=== PATIENT | female | born 1985 | race Caucasian/White ===

== ENCOUNTER 2022-04-26 08:29 | Emergency (ER) | payer OTHER, SELFPAY ==
--- NOTE | ~2022-04-26 | US_ITS ---
EXAMINATION: US venous doppler LE RT DATE: 04/26/2022 12:10 INDICATION: Right lower limb pain and swelling. TECHNIQUE: Grayscale ultrasound images without and with compression and Doppler ultrasound images of the right lower extremity veins were obtained. COMPARISON: None. FINDINGS: The visualized portions of right common femoral vein, profunda (deep) femoral vein, femoral vein, pop liteal vein, peroneal veins, posterior tibial veins, and greater saphenous vein outflow are patent. IMPRESSION: 1. No deep venous thrombosis. Reviewed, dictated and finalized at location B.
--- NOTE | ~2022-04-26 | XR_ITS ---
EXAMINATION: XR lumbar spine 2-3V DATE: 04/26/2022 12:22 INDICATION: Paresthesias of the right lower leg TECHNIQUE: Anteroposterior and lateral views of the lumbar spine, and cone-down lateral view of the l umbosacral junction were obtained. COMPARISON: None. FINDINGS: There is no fracture, dislocation, or subluxation. The vertebral body heights are maintaine d. There is mild loss of intervertebral disc space height at L5-S1. There is mild facet joint osteoar thritis of the mid and lower lumbar spine. Cholecystectomy clips are noted. IMPRESSION: 1. Mild lumbar spondylosis without acute findings. Reviewed, dictated and finalized at location A.
--- NOTE | ~2022-04-26 | XR_ITS ---
EXAMINATION: XR foot RT min 3V DATE: 04/26/2022 09:28 INDICATION: Right foot pain at the heel. TECHNIQUE: 4 views of right foot were obtained. COMPARISON: None. FINDINGS: Bone alignment is normal. No acute fracture. Ossification at distal tip of fibula may be an old healed fracture or an enthesophyte. There is mild osteoarthritis of talonavicular joint. There i s an enthesophyte at plantar aspect of calcaneal tuberosity. IMPRESSION: 1. No acute fracture. Reviewed, dictated and finalized at location B. IMPRESSION: 1. No acute fracture.
[2022-04-26 08:41] VITALS: BP 158/86; PULSE 63; RESP 16; TEMP 36.6; O2SAT 100
[2022-04-26] MEDS: ACETAMINOPHEN 500 MG TABLET 1000 MG PO (12:29)
[2022-04-26] MEDS: KETOROLAC 30 MG/ML VIAL (*BKC) IM (12:30)
--- NOTE | 2022-04-26 12:36 | ED.LOWEXIN ---
HPI - Extremity Injury (Lower) General Chief Complaint: Extremity Injury, Lower Stated Complaint: foot pain Time Seen by Provider: 04/26/22 10:37 Source: patient Mode of arrival: ambulatory Limitations: no limitations History of Present Illness HPI Narrative: This is a 37-year-old female that presents to the emergency department for right foot pain ongoing over the last 3 months. No recent injury or trauma. Reports the pain is worse with weightbearing and relieved with rest. Reports she has had tingling that happens in the right foot and radiates into the lower leg. Denies any back pain. She has been seeing an personal protection specialist for her foot. Denies decreased range of motion or numbness. Related Data Home Medications Medication Instructions Recorded Confirmed albuterol sulfate 90 mcg/actuation 1 puff inhalation Q4H PRN 02/27/22 02/27/22 aerosol inhaler Allergies Allergy/AdvReac Type Severity Reaction Status Date / Time sulfamethoxazole AdvReac Unknown Unknown Verified 04/26/22 12:04 [From ] trimethoprim [From ] AdvReac Unknown Unknown Verified 04/26/22 12:04 Review of Systems Review of Systems: CONSTITUTIONAL: Denies fever SKIN: Denies rash MUSCULOSKELETAL: Reports joint pain and myalgia. Denies back pain NEUROLOGIC: Denies numbness, or weakness. All systems reviewed & are unremarkable except as noted in HPI and below PMFSH Past Medical History Medical History (Updated 04/26/22 @ 13:30 by Carolynn Adhikari PA-C) Asthma Hx of uterine prolapse Surgical History Surgical History (Updated 02/27/22 @ 11:08 by Meena Franks MA) Hx of cholecystectomy Family History Family History Father Suicide Sibling Suicide Social History Social History (Updated 02/27/22 @ 11:08 by Meena Franks MA) Smoking status: Never smoker Second hand tobacco smoke exposure: Yes Alcohol intake: current Alcohol use details: Occasional Substance use: never Substance use type: does not use Gender identity (if verbalized by the patient): Female Sexual Orientation (if Verbalized by the Patient): Straight or Heterosexual Spiritual care concerns: No Agree to blood products: Yes Exam Narrative: GENERAL: Well-appearing, well-nourished, and in no acute distress. HEAD: Normocephalic, atraumatic. EYES: EOMI. CHEST: Clear to auscultation. No respiratory distress. No wheezes rales or rhonchi HEART: Regular rate and rhythm. No murmur heard. Normal peripheral pulses. EXTREMITIES: Normal range of motion. No edema, erythema or obvious deformity. Normal DP pulse. Normal sensation. Strength equal in bilateral lower extremities (5/5) SKIN: Warm, dry, no rash. NEURO: No focal deficits. Alert and oriented x3. PSYCH: Normal mood and affect Course Vital Signs Vital signs: Vital Signs Temperature 97.8 F 04/26/22 08:41 Pulse Rate 63 04/26/22 08:41 Respiratory Rate 16 04/26/22 08:41 Blood Pressure 158/86 H 04/26/22 08:41 Pulse Oximetry 100 04/26/22 08:41 Oxygen Delivery Room Air 04/26/22 08:41 Temperature 97.8 F 04/26/22 08:41 Pulse Rate 63 04/26/22 08:41 Respiratory Rate 16 04/26/22 08:41 Blood Pressure 158/86 H 04/26/22 08:41 Pulse Oximetry 100 04/26/22 08:41 Oxygen Delivery Room Air 04/26/22 08:41 MDM - Extremity Injury (Lower) MDM Narrative Medical decision making narrative: Patient presents to the emergency department for right foot pain ongoing over the last couple of months. Is currently following with orthopedics for this. She is afebrile and nontoxic-appearing. She is neurovascularly intact. Noted to have some mild swelling into the ankle and lower leg. Venous Doppler is without evidence of DVT. Right foot x-ray is without acute abnormalities. Patient was also reporting some paresthesias in the foot. No concerning findings on lumbar spine x-ray. Patient and family
== END 2022-04-26 14:18 | disposition home or self-care (01) ==
PROVIDERS: Emergency Provider Emergency Medicine; PCP Family Medicine Adolescent Medicine
DX: M79.671 Pain in right foot (principal); G89.29 Other chronic pain; J45.909 Unspecified asthma, uncomplicated; Z77.22 Contact with and (suspected) exposure to environmental tobacco smoke (acute) (chronic); M47.816 Spondylosis without myelopathy or radiculopathy, lumbar region
CPT/HCPCS: 72100; 73630; 93971; 96372; 99284; A9270; J1885

== ENCOUNTER 2022-08-16 00:17 | Day surgery (SDC) | payer OTHER, SELFPAY ==
[2022-08-02 15:32] VITALS: BMI 31.4
--- NOTE | 2022-08-15 16:48 | PM.HPGS ---
History of Present Illness History of Present Illness Consent: Risks, benefits, and alternatives have been discussed and questions answered. Patient agrees to proceed with procedure. Chief complaint: N&V, constipation Narrative: Nisreen Marquez is a 37 year old female who has been having a great deal difficulty with nausea and vomiting for the past year. The symptoms come on randomly. She began taking pantoprazole for acid reflux but the nausea and vomiting did not improve. Eating does not seem to be related to her symptoms. She also has a great deal of difficulty with constipation. From straining she developed prolapse and even after having had mesh placement with anterior and posterior vault suspension, she again had prolapse due to straining. since her last operation for prolapse in May, she has lost about 40 lb. Review of Systems Review of Systems: All systems reviewed & are unremarkable except as noted in HPI and below PMFSH Past Medical History Medical History Asthma Hx of uterine prolapse Surgical History Surgical History H/O total hysterectomy Hx of cholecystectomy Family History Family History Father Suicide Sibling Suicide Social History Social History Smoking status: Former smoker Tobacco type: cigarettes Second hand tobacco smoke exposure: Yes Alcohol intake: current Alcohol use details: Holiday's Substance use: current Substance use type: marijuana Last use: occasional Living arrangements: with family Occupation/Education: occupation Gender identity (if verbalized by the patient): Female Sexual Orientation (if Verbalized by the Patient): Straight or Heterosexual Spiritual care concerns: No Agree to blood products: Yes Meds Home Medications and Allergies Home Medications Medication Instructions Recorded Confirmed Type albuterol sulfate 90 mcg/actuation 1 puff inhalation Q4H PRN 02/27/22 08/02/22 History aerosol inhaler Shortness Of Breath ondansetron 4 mg disintegrating 4 mg PO Q8H PRN nausea and 05/12/22 08/02/22 Rx tablet vomiting #30 tabs diclofenac sodium 75 mg 75 mg PO BID PRN Pain 08/02/22 08/02/22 History tablet,delayed release pantoprazole 40 mg tablet,delayed 40 mg PO QHS PRN Indigestion 08/02/22 08/02/22 History release polyethylene glycol 3350 17 17 g PO DAILY PRN Constipation 08/02/22 08/02/22 History gram/dose oral powder (Miralax) Allergies Allergy/AdvReac Type Severity Reaction Status Date / Time sulfamethoxazole AdvReac Unknown Unknown Verified 08/16/22 09:32 [From ] trimethoprim [From ] AdvReac Unknown Unknown Verified 08/16/22 09:32 Exam Const: General: alert Orientation/consciousness: patient oriented x3 Resp: Auscultation: clear to auscultation bilaterally Cardio: Rhythm: regular rhythm GI: GI Palp: Yes Soft to palpation and No Tenderness to palpation present (GI) Neuro: General: patient oriented x3 Assessment and Plan Assessment and plan (1) Nausea and vomiting: Code(s): R11.2 - Nausea with vomiting, unspecified Status: Acute Assessment and Plan: EGD with possible biopsy or dilatation or cautery. (2) Chronic constipation: Code(s): K59.09 - Other constipation Status: Acute Assessment and Plan: Colonoscopy with possible biopsy or polypectomy or cautery or injection of substances.
[2022-08-16] MEDS: LACTATED RINGERS 1,000 ML 150 ML IV CONT (09:31)
--- NOTE | 2022-08-16 09:31 | P.PNAN_ITS ---
Anes - Initial Pre Proc Eval Procedure: Operation Date: 08/16/22 10:45 Proposed Procedures p Esophagogastroduodenoscopy & Colonoscopy - Aric Rizzo MD Date/Time: 08/16/22 09:31 Surgeon: Aric Rizzo MD Pre Op Diagnosis: N&V, constipation Patient Data Age: 37 Gender: F Height: 1.7 m Weight: 91 kg Allergies Allergy/AdvReac Type Severity Reaction Status Date / Time sulfamethoxazole AdvReac Unknown Unknown Verified 08/02/22 15:33 [From ] trimethoprim [From ] AdvReac Unknown Unknown Verified 08/02/22 15:33 Home Medications Medication Instructions Recorded Confirmed Type albuterol sulfate 90 mcg/actuation 1 puff inhalation Q4H PRN 02/27/22 08/02/22 History aerosol inhaler Shortness Of Breath ondansetron 4 mg disintegrating 4 mg PO Q8H PRN nausea and 05/12/22 08/02/22 Rx tablet vomiting #30 tabs peg 3350-electrolytes 236 240 ml PO Q10M #4,000 mL 07/26/22 Rx gram-22.74 gram-6.74 gram-5.86 gram solution (Golytely) diclofenac sodium 75 mg 75 mg PO BID PRN Pain 08/02/22 08/02/22 History tablet,delayed release pantoprazole 40 mg tablet,delayed 40 mg PO QHS PRN Indigestion 08/02/22 08/02/22 History release polyethylene glycol 3350 17 17 g PO DAILY PRN Constipation 08/02/22 08/02/22 History gram/dose oral powder (Miralax) Patient hx anesthesia problems: none Family hx anesthesia problems: none Results Review: All pre-operative results and documents have been reviewed as part of the pre- operative evaluation. [facility] Past Medical History Medical History Asthma Hx of uterine prolapse Surgical History Surgical History H/O total hysterectomy Hx of cholecystectomy Family History Family History Father Suicide Sibling Suicide Social History Social History Smoking status: Former smoker Tobacco type: cigarettes Second hand tobacco smoke exposure: Yes Alcohol intake: current Alcohol use details: Holiday's Substance use: current Substance use type: marijuana Last use: occasional Living arrangements: with family Occupation/Education: occupation Gender identity (if verbalized by the patient): Female Sexual Orientation (if Verbalized by the Patient): Straight or Heterosexual Spiritual care concerns: No Agree to blood products: Yes Anes - Eval Final PreProcedure Day of Procedure 08/16/22 09:31 Patient weight: obese Heart: regular rate and rhythm Lungs: clear to auscultation Airway: Mallampati scale class II Neurological: alert and oriented Last oral intake: >/= 8 hours ASA classification: II Emergent: no Anesthetic plan: proceed Anesthesia type and monitoring: general GIVS and standard monitoring Results Review: All pre-operative results and documents have been reviewed as part of the pre- operative evaluation. Informed Consent: The patient's anesthetic plan and its attendant risks and benefits were discussed with the patient/family/POA. Questions were solicited and answers provided to the satisfaction of the patient/family/POA.
[2022-08-16 09:34] VITALS: BP 115/68; PULSE 63; RESP 18; TEMP 36.4; O2SAT 100
--- NOTE | 2022-08-16 10:24 | SUR.OPER ---
EGD: [id number] COLON: [id number]
[2022-08-16 10:46] VITALS: BP 92/59; PULSE 66; RESP 19; O2SAT 100
[2022-08-16 10:56] VITALS: BP 110/63; PULSE 60; RESP 22; O2SAT 100
[2022-08-16 11:06] VITALS: BP 108/68; PULSE 64; RESP 17; O2SAT 100
== END 2022-08-16 11:30 | disposition home or self-care (01) ==
PROVIDERS: PCP Family Medicine Adolescent Medicine; Visit Provider Internal Medicine Gastroenterology
PROC: 0DJ08ZZ Inspection of Upper Intestinal Tract, Via Natural or Artificial Opening Endoscopic (ICD-10-PCS; CPT 43235; principal; 2022-08-16 10:45)
DX: K59.09 Other constipation (principal); K29.50 Unspecified chronic gastritis without bleeding; B96.81 Helicobacter pylori [H. pylori] as the cause of diseases classified elsewhere; K57.30 Diverticulosis of large intestine without perforation or abscess without bleeding; K21.9 Gastro-esophageal reflux disease without esophagitis; J45.909 Unspecified asthma, uncomplicated; Z87.891 Personal history of nicotine dependence; F12.90 Cannabis use, unspecified, uncomplicated; E66.9 Obesity, unspecified; Z68.32 Body mass index [BMI] 32.0-32.9, adult; Z79.51 Long term (current) use of inhaled steroids
CPT/HCPCS: 45378; 43239; 88305; 88342; J2704; J7120

== ENCOUNTER 2023-04-03 10:11 | Outpatient (CLI) | payer OTHER, SELFPAY ==
[2023-04-03 11:08] LABS: Influenza A QL RT-PCR Negative (Negative); Influenza B QL RT-PCR Negative (Negative); SARS-CoV-2 RNA PCR Negative (Negative)
== END 2023-04-03 10:12 | disposition home or self-care (01) ==
LOC: ANHLAB 10:12
PROVIDERS: PCP Family Medicine Adolescent Medicine; Visit Provider Nurse Practitioner Family
DX: R05.9 Cough, unspecified (principal); Z20.822 Contact with and (suspected) exposure to COVID-19
CPT/HCPCS: 87636